=== PATIENT | female | born 1955 | race Caucasian/White ===

== ENCOUNTER 2018-01-09 11:03 | Day surgery (SDC) | payer OTHER ==
[2018-01-09] MEDS: LIDOCAINE 1% (MPF) 30 ML INJ
[2018-01-09] MEDS: BUPIVACAINE 0.5% (SDV) 30 ML INJ
[~2018-01-09 11:03] MED LIST: EPHEDrine SULFATE 50 MG/5 ML SYG; ROCURONIUM 50 MG INJ
[2018-01-09] MEDS ORDERED: FENTAnyl 50 MCG/ML VIAL ×2 (12:46→13:30)
[2018-01-09] MEDS ORDERED: PROPOFOL 20 ML (12:46)
[2018-01-09] MEDS ORDERED: MIDAZOLAM 1 MG/ML 2 ML INJ (12:46)
[2018-01-09] MEDS ORDERED: CEFAZOLIN 1 GM INJ (12:46)
[2018-01-09] MEDS ORDERED: POLYMYXIN/BACITRACIN 1L IRRIG (12:53)
[2018-01-09] MEDS ORDERED: ROPIVACAINE 0.5 % 30 ML VIAL (13:24)
[2018-01-09] MEDS ORDERED: DEXAMETHASONE 4 MG/ML 1 ML INJ (13:52)
[2018-01-09] MEDS ORDERED: ONDANSETRON 4 MG INJ (13:52)
[2018-01-09] MEDS ORDERED: METOCLOPRAMIDE 10 MG INJ (13:52)
[2018-01-09] MEDS ORDERED: SUGAMMADEX SODIUM 200 MG/2 ML VIAL IV (13:52)
[2018-01-09] MEDS ORDERED: KETOROLAC 30 MG INJ (13:52)
[2018-01-09] MEDS ORDERED: HYDROmorphONE (0.2 MG/ML) 10ML SYG IV ×3 (14:20→14:30)
[2018-01-09] MEDS: HYDROmorphONE (0.2 MG/ML) 10ML SYG IV ×2 (14:26→14:33)
[2018-01-09] MEDS ORDERED: ONDANSETRON 4 MG INJ IV (14:30)
[2018-01-09] MEDS ORDERED: FENTAnyl 50 MCG/ML VIAL IV ×3 (14:30)
[2018-01-09] MEDS ORDERED: EPHEDrine SULFATE 50 MG/5 ML SYG IV (14:30)
[2018-01-09] MEDS ORDERED: hydrALAzine 20 MG INJ IV (14:30)
[2018-01-09] MEDS ORDERED: OXYCODONE/ACETAMINOPHEN (5/325) TAB PO ×3 (14:30)
[2018-01-09] MEDS ORDERED: LABETALOL HCL 20MG INJ IV (14:30)
[2018-01-09] MEDS ORDERED: METOCLOPRAMIDE 10 MG INJ IV (14:30)
[2018-01-09] MEDS ORDERED: MEPERIDINE 25 MG INJ IV (14:30)
[2018-01-09] MEDS ORDERED: DIPHENHYDRAMINE 50 MG INJ IV (14:30)
== END 2018-01-09 15:20 | disposition home or self-care (01) ==
LOC: SDS 11:03
DX: S62.336A Displaced fracture of neck of fifth metacarpal bone, right hand, initial encounter for closed fracture (principal); Z87.891 Personal history of nicotine dependence; X58.XXXA Exposure to other specified factors, initial encounter; Y93.89 Activity, other specified; Y92.89 Other specified places as the place of occurrence of the external cause; Y99.8 Other external cause status
CPT/HCPCS: 26615; 73130-RT